=== PATIENT | female | born 1955 | race Caucasian/White ===

== ENCOUNTER 2018-01-03 14:26 | Emergency (ER) | payer MEDICARE, BC ==
[~2018-01-03] VITALS: Ht 167.6 cm; Wt 80.0 kg
[2018-01-03 14:27] VITALS: BP 140/68; PULSE 78; RESP 16; TEMP 98.2; O2SAT 99
[2018-01-03 15:16] LABS: AUTOMATED NEUTROPHIL # 4.5 TH/MM3 (1.8-7.7); BASOPHIL # 0.1 TH/MM3 (0-0.2); BASOPHIL % 0.8 % (0.0-2.0); EOSINOPHIL # 0.1 TH/MM3 (0-0.4); EOSINOPHIL % 1.1 % (0.0-4.0); LYMPH % 33.6 % (9.0-44.0); LYMPHOCYTE # 2.6 TH/MM3 (1.0-4.8); MEAN CELL VOLUME 94.5 FL (80.0-100.0); MEAN CORPUSCULAR HEMOGLOBIN 32.3 PG (27.0-34.0); MEAN CORPUSCULAR HGB CONC 34.2 % (32.0-36.0); MEAN PLATELET VOLUME 7.8 FL (7.0-11.0); MONO % 6.9 % (0.0-8.0); MONOCYTE # 0.5 TH/MM3 (0-0.9); NEUT % 57.6 % (16.0-70.0); PLATELET COUNT 370 TH/MM3 (150-450); RED BLOOD COUNT 4.02 MIL/MM3 (4.00-5.30); RED CELL DISTRIBUTION WIDTH 12.5 % (11.6-17.2); WHITE BLOOD COUNT 7.8 TH/MM3 (4.0-11.0)
[2018-01-03 15:32] LABS: BILIRUBIN, URINE NEG (NEG); BLOOD, URINE NEG (NEG); GLUCOSE,URINE NEG (NEG); KETONE, URINE NEG (NEG); MUCUS URINE FEW /lpf (OCC); NITRITE,URINE NEG (NEG); SQUAMOUS EPITHELIAL CELL URINE <1 /hpf (0-5); URINE COLOR YELLOW (YELLW/STRAW); URINE LEUKOCYTE ESTERASE SMALL (NEG)
[2018-01-03 15:38] LABS: ALBUMIN 3.8 GM/DL (3.4-5.0); ALT (GPT) 18 U/L (10-53); AST (GOT) 13 U/L (15-37); BICARBONATE 29.4 MEQ/L (21.0-32.0); BLOOD UREA NITROGEN 10 MG/DL (7-18); CALCIUM 8.9 MG/DL (8.5-10.1); CHLORIDE 104 MEQ/L (98-107); CREATININE 0.77 MG/DL (0.50-1.00); GLOMERULAR FILTRATION RATE 75 ML/MIN (>89); GLUCOSE,RANDOM 100 MG/DL (74-106); SODIUM (NA) 139 MEQ/L (136-145)
[2018-01-03 15:40] LABS: ALKALINE PHOSPHATASE 77 U/L (45-117); TOTAL BILIRUBIN ADULT 0.2 MG/DL (0.2-1.0); TOTAL PROTEIN 7.4 GM/DL (6.4-8.2)
[2018-01-03] MEDS ORDERED: LOSA50TA PO (16:53)
[2018-01-03] MEDS ORDERED: ASPI81TA23 PO (16:53)
[2018-01-03] MEDS ORDERED: PANT40TA3 PO (16:53)
[2018-01-03] MEDS ORDERED: PRAV40TA2 PO (16:53)
[2018-01-03] MEDS ORDERED: FLUO40CA PO (16:53)
[2018-01-03] MEDS ORDERED: LEVO175T2 PO (16:53)
--- NOTE | 2018-01-03 17:21 | PD ---
HPI Chief Complaint: Abdominal Pain Time Seen by Provider: 17:04 Travel History International Travel<30 days: No Contact w/Intl Traveler<30days: No Traveled to known affect area: No History of Present Illness HPI Patient is a 62 year old female presents to the emergency department for evaluation of 10 day history of left upper quadrant abdominal pain which she states is severe. Patient states that [place] had a complete workup this week including a CAT scan of her abdomen. She states everything was fine but they thought that she might have C. difficile. She was started on empiric treatment for C. difficile with Flagyl, she was also started on Keflex for unknown reason and she states she thinks she is allergic to Keflex because it makes her worse. She be given [place] and Ultram multiple other medicines and states nothing is working. She states whenever she tries to eat something she feels like he gets worse. She denies any chest pain palpitations shortness of breath constipation or vomiting. She endorses nausea. She endorses diarrhea. Patient has had colonoscopy previously but she is from out of town, she does have a primary care physician in the area who she has not seen but he did say that he did not have much more to offer her either. PFSH Past Medical History Depression: Yes High Cholesterol: Yes GERD: Yes Hypertension: Yes Past Surgical History Abdominal Surgery: Yes Hysterectomy: Yes Social History Alcohol Use: Yes (OCC) Tobacco Use: No Substance Use: No Allergies-Medications (Allergen,Severity, Reaction): Coded Allergies: cephalexin (Verified Adverse Reaction, Severe, DIARRHEA, 01/03/18) Reported Meds & Prescriptions Reported Meds & Active Scripts Active Reported Aspirin EC (Aspirin) 81 Mg Tabdr 81 Mg PO DAILY Losartan (Losartan Potassium) 50 Mg Tab 50 Mg PO DAILY Pravastatin 40 Mg Tab 40 Mg PO DAILY Fluoxetine (Fluoxetine HCl) 40 Mg Cap 40 Cap PO DAILY Levothyroxine (Levothyroxine Sodium) 175 Mcg Tab 175 Mcg PO DAILY Pantoprazole (Pantoprazole Sodium) 40 Mg Tab 40 Mg PO DAILY Review of Systems Except as stated in HPI: all other systems reviewed are Neg Physical Exam Narrative GENERAL: Well-developed well-nourished, no obvious distress per SKIN: Focused skin assessment warm/dry. HEAD: Atraumatic. Normocephalic. EYES: Pupils equal and round. No scleral icterus. No injection or drainage. ENT: No nasal bleeding or discharge. Mucous membranes pink and moist. NECK: Trachea midline. No JVD. CARDIOVASCULAR: Regular rate and rhythm. No murmur appreciated. RESPIRATORY: No accessory muscle use. Clear to auscultation. Breath sounds equal bilaterally. GASTROINTESTINAL: Abdomen soft, non-tender, nondistended. Hepatic and splenic margins not palpable. No rebound no percussive tenderness, hepatic splenic margins and not palpable, no percussive tenderness. MUSCULOSKELETAL: No obvious deformities. No clubbing. No cyanosis. No edema. NEUROLOGICAL: Awake and alert. No obvious cranial nerve deficits. Motor grossly within normal limits. Normal speech. PSYCHIATRIC: Appropriate mood and affect; insight and judgment normal. Data Data Last Documented VS Vital Signs Date Time Temp Pulse Resp B/P (MAP) Pulse Ox O2 Delivery O2 Flow Rate FiO2 01/03/18 18:00 01/03/18 14:27 98.2 78 16 99 Orders Orders Complete Blood Count With Diff (01/03/18 14:40) Comprehensive Metabolic Panel (01/03/18 14:40) Urinalysis - C+S If Indicated (01/03/18 14:40) Lipase (01/03/18 14:40) Acetaminophen (Tylenol) (01/03/18 17:30) Ed Discharge Order (01/03/18 17:24) Labs Laboratory Tests Test 01/03/18 14:45 White Blood Count 7.8 TH/MM3 Red Blood Count 4.02 MIL/MM3 Hemoglobin 13.0 GM/DL Hematocrit 38.0 % Mean Corpuscular Volume 94.5 FL Mean Corpuscular Hemoglobin 32.3 PG Mean Corpuscular Hemoglobin Concent 34.2 % Red Cell Distribution Width 12.5 % Platelet Count 370 TH/MM3 Mean Platelet Volume 7.8 FL Neutrophils (%) (Auto) 57.6 % Lymphocytes (%) (Auto) 33.6 % Monocytes (%) (Auto) 6.9 % Eosinophils (%) (Auto) 1.1 % Basophils (%) (Auto) 0.8 % Neutrophils # (Auto) 4.5 TH/MM3 Lymphocytes # (Auto) 2.6 TH/MM3 Monocytes # (Auto) 0.5 TH/MM3 Eosinophils # (Auto) 0.1 TH/MM3 Basophils # (Auto) 0.1 TH/MM3 CBC Comment DIFF FINAL Differential Comment Urine Color YELLOW Urine Turbidity CLEAR Urine pH 5.0 Urine Specific [place] 1.010 Urine Protein NEG mg/dL Urine Glucose (UA) NEG mg/dL Urine Ketones NEG mg/dL Urine Occult Blood NEG Urine Nitrite NEG Urine Bilirubin NEG Urine Urobilinogen LESS THAN 2.0 MG/DL Urine Leukocyte Esterase SMALL Urine WBC 2 /hpf Urine Squamous Epithelial Cells <1 /hpf Urine Mucus FEW /lpf Microscopic Urinalysis Comment CULT NOT INDICATED Blood Urea Nitrogen 10 MG/DL Creatinine 0.77 MG/DL Random Glucose 100 MG/DL Total Protein 7.4 GM/DL Albumin 3.8 GM/DL Calcium Level 8.9 MG/DL Alkaline Phosphatase 77 U/L Aspartate Amino Transf (AST/SGOT) 13 U/L Alanine Aminotransferase (ALT/SGPT) 18 U/L Total Bilirubin 0.2 MG/DL Sodium Level 139 MEQ/L Potassium Level 3.5 MEQ/L Chloride Level 104 MEQ/L Carbon Dioxide Level 29.4 MEQ/L Anion Gap 6 MEQ/L Estimat Glomerular Filtration Rate 75 ML/MIN Lipase 158 U/L MDM Medical Decision Making Medical Screen Exam Complete: Yes Emergency Medical Condition: Yes Differential Diagnosis Acute abdomen unlikely, C. difficile colitis, UTI, cholecystitis unlikely, pink otitis unlikely, gastritis, peptic ulcer disease. Narrative Course Patient 62-year-old female presents emergency department with left upper quadrant abdominal pain appears calm and comfortable and has benign abdominal exam, she recently had a CAT scan at outside facility which she states was normal. At this time with her normal labs and repeat CAT scan a benign abdomen I do not see the rationale for repeat imaging is unlikely to be beneficial for this patient's well-being. She then requests a steroid saying that they might help her pain, I discussed that if peptic ulcer disease on the differential it may actually worsen it. I recommend that she take some Tums or Pepto-Bismol and she should consider stopping some of her opiate pain medication as well. She states she wanted to stop taking anyways because she thought it was making her sicker. Discussed that she needs to follow-up with a pneumatic deicer inspector or her primary care physician. Discussed returning to criteria. She is stable for discharge Diagnosis Primary Impression: Abdominal pain Referrals: Brayden Andre MD Disposition: 01 DISCHARGE HOME Condition: Stable Andres Boyce MD Jan 03, 2018 17:21
[2018-01-03] MEDS ORDERED: ACETAMINOPHEN 500 MG CPLT PO ONE (17:30)
== END 2018-01-03 18:00 | disposition home or self-care (01) ==
LOC: NEPD 14:26
DX: R10.12 Left upper quadrant pain (principal); I10 Essential (primary) hypertension; K21.9 Gastro-esophageal reflux disease without esophagitis
CPT/HCPCS: 80053; 81001; 83690; 85025; 99283